=== PATIENT | female | born 1980 | race African-American/Black ===

== ENCOUNTER 2017-11-16 20:51 | Emergency (ER) | payer BC ==
[~2017-11-16] VITALS: Ht 160 cm; Wt 82.5 kg
[2017-11-16] MEDS ORDERED: ZYRTEC10 MG PO (21:05)
[2017-11-16] MEDS ORDERED: IBUPROFEN200 M1 PO (21:06)
== END 2017-11-16 22:32 | disposition home or self-care (01) ==
LOC: ED 20:51
DX: K76.89 Other specified diseases of liver (principal); R31.9 Hematuria, unspecified; Z79.899 Other long term (current) drug therapy
CPT/HCPCS: 74177; 80053; 81001; 82150; 83690; 85025; 96361; 96374; 96375; 99284; J1170; J2405; J7030; Q9967